=== PATIENT | male | born 1960 | race Caucasian/White ===

== ENCOUNTER 2025-04-15 17:13 | Emergency (ER) | payer MEDICARE, MEDICAID ==
[2025-04-15 18:46] LABS: BASOPHILS ABSOLUTE AUTO 0.09 10^3/uL (0.00-0.50); BASOPHILS PERCENT AUTO 0.8 % (0-1); EOSINOPHILS ABSOLUTE AUTO 0.21 10^3/uL (0.00-1.50); EOSINOPHILS PERCENT AUTO 2.0 % (0-6); IMMATURE GRAN ABSOLUTE AUTO 0.02 10^3/uL (0.00-0.49); IMMATURE GRAN PERCENT AUTO 0.2 % (0.0-4.9); LYMPHOCYTES ABSOLUTE AUTO 2.53 10^3/uL (0.60-5.00); LYMPHOCYTES PERCENT AUTO 23.8 % (24-44); MONOCYTES ABSOLUTE AUTO 1.10 10^3/uL (0.00-1.50); MONOCYTES PERCENT AUTO 10.3 % (0-10); NEUTROPHILS ABSOLUTE AUTO 6.70 x10^3/uL (1.80-8.00); NEUTROPHILS PERCENT AUTO 62.9 % (41-71); PLATELET COUNT,PLT 295 10^3/uL (150-400); RED BLOOD CELL COUNT 4.29 x10^6/uL (4.50-6.00); WHITE BLOOD CELL COUNT,WBC 10.7 10^3/uL (4.0-11.0)
[2025-04-15 19:07] LABS: ALANINE AMINOTRANSFERASE,ALT 25.0 U/L (12-78); ASPARTATE AMNIOTRANSFERASE,AST 23.0 U/L (15-37); BILIRUBIN TOTAL 0.7 mg/dL (0.0-1.0); BLOOD UREA NITROGEN,BUN 8.0 mg/dL (7-18); CARBON DIOXIDE,CO2 30.0 mmol/L (21-32); CHLORIDE,CL 100.0 mEq/L (98-106); CREATININE 1.2 mg/dL (0.7-1.3); EST CRCL DRUG DOSING (CG) 74.21 mL/min; ESTIMATED GFR 68.0 mL/min (>=60); GLUCOSE RANDOM 106.0 mg/dL (75-99); POTASSIUM,K 4.2 mEq/L (3.5-5.0); PRO B-TYPE NATRIUR PEPT,BNPPRO 230.0 pg/mL (0-1000); PROTEIN TOTAL,TP 7.9 g/dL (6.4-8.2); SODIUM,NA 137.0 mEq/L (136-145)
[2025-04-15] MEDS ORDERED: Nystatin Crm 30 GM Tube TOP PRN (23:08)
== END 2025-04-16 13:30 | disposition left against medical advice (07) ==
LOC: CC.ED 17:13
DX: N50.89 Other specified disorders of the male genital organs (principal); Z53.29 Procedure and treatment not carried out because of patient's decision for other reasons; E78.00 Pure hypercholesterolemia, unspecified; I11.0 Hypertensive heart disease with heart failure; I50.9 Heart failure, unspecified; J44.9 Chronic obstructive pulmonary disease, unspecified; K21.9 Gastro-esophageal reflux disease without esophagitis; Z88.8 Allergy status to other drugs, medicaments and biological substances; Z79.82 Long term (current) use of aspirin; Z79.899 Other long term (current) drug therapy
CPT/HCPCS: 36415; 71045; 80053; 83735; 83880; 84484; 85025; 86140; 93005; 99284; A9270-GY